=== PATIENT | female | born 1970 | race American Indian/Alaskan Native ===

== ENCOUNTER 2017-10-17 18:10 | Emergency (ER) | payer SELFPAY ==
[2017-10-17 19:18] LABS: Hematocrit 41.1 % (30.3-42.9); Hemoglobin 13.5 gm/dl (10.1-14.3); Mean Corpuscular HGB Conc 33 % (30-34); Mean Corpuscular Hemoglobin 30 pg (28-32); Mean Corpuscular Volume 90 fl (79-97); Platelet Count 235 K/mm3 (140-440); Red Blood Count 4.56 M/mm3 (3.65-5.03); Red Cell Distribution Width 12.7 % (13.2-15.2)
[2017-10-17 19:43] LABS: Alanine Aminotransferase 7 units/L (7-56); Albumin 3.9 g/dL (3.9-5); BUN/Creatinine Ratio 17; Blood Urea Nitrogen 10 mg/dL (7-17); Calcium 9.1 mg/dL (8.4-10.2); Hemolysis Index 6; Lipase 32 units/L (13-60)
[2017-10-17 20:09] LABS: Basophils % (Manual) 0 % (0.0-1.8); Platelet Estimate Consistent w Auto; Total Cells Counted 100
[2017-10-17] MEDS ORDERED: PERCOCET 5/325 PO ONE (23:04)
--- NOTE | 2017-10-17 23:04 | Emergency Department Report ---
ED Abdominal Pain HPI - General Chief Complaint: Pain General Stated Complaint: CHEST/BACK PAIN/BLURRED VISION Time Seen by Provider: 10/17/17 22:46 Source: patient Mode of arrival: Ambulatory Limitations: No Limitations - History of Present Illness Initial Comments: Ms. Barrow is a healthy 47-year-old female who's had 1 week of mild left flank pain. Today she developed pelvic pain radiating to the left lower quadrant. She feels as if "she's having a baby. She had brief nondescript chest pain. She's had headache. She's seen black spots in her vision feel. Last normal menstrual period in August. She now has vaginal spotting. MD Complaint: abdominal pain -: days(s) (1) Location: LLQ Radiation: L flank Severity scale (0 -10): 2 Quality: cramping Consistency: constant Improves With: nothing Worsens With: nothing - Related Data Previous Rx's Medication Instructions Recorded Last Taken Type Doxycycline Hyclate [Doxycycline 100 mg PO Q12HR 10 Days #20 tab 10/18/17 Unknown Rx Hyclate TAB] oxyCODONE /ACETAMINOPHEN [Percocet 1 tab PO Q6HR PRN #10 tablet 10/18/17 Unknown Rx 5/325] Allergies Allergy/AdvReac Type Severity Reaction Status Date / Time No Known Allergies Allergy Unverified 10/17/17 18:38 ED Review of Systems ROS: Stated complaint: CHEST/BACK PAIN/BLURRED VISION Other details as noted in HPI Comment: All other systems reviewed and negative Constitutional: denies: fever, malaise ED Past Medical Hx - Past Medical History Previous Medical History?: No Additional medical history: VAGINAL DELIVERY X 3 - Surgical History Past Surgical History?: Yes Additional Surgical History: TUBALIGATION - Social History Smoking Status: Never Smoker Substance Use Type: None - Medications Home Medications: Home Medications Medication Instructions Recorded Confirmed Last Taken Type Doxycycline Hyclate [Doxycycline 100 mg PO Q12HR 10 Days #20 tab 10/18/17 Unknown Rx Hyclate TAB] oxyCODONE /ACETAMINOPHEN [Percocet 1 tab PO Q6HR PRN #10 tablet 10/18/17 Unknown Rx 5/325] ED Physical Exam - General Limitations: No Limitations General appearance: alert, in no apparent distress - Head Head exam: Present: atraumatic, normocephalic - Eye Eye exam: Present: normal appearance - ENT ENT exam: Present: mucous membranes moist - Neck Neck exam: Present: normal inspection - Respiratory Respiratory exam: Present: normal lung sounds bilaterally. Absent: respiratory distress, wheezes, rales, rhonchi - Cardiovascular Cardiovascular Exam: Present: regular rate, normal rhythm, normal heart sounds. Absent: systolic murmur, diastolic murmur, rubs, gallop - GI/Abdominal GI/Abdominal exam: Present: soft, normal bowel sounds. Absent: distended, tenderness, guarding, rebound - Extremities Exam Extremities exam: Present: normal inspection - Back Exam Back exam: Present: normal inspection - Neurological Exam Neurological exam: Present: alert, oriented X3 - Psychiatric Psychiatric exam: Present: normal affect, normal mood - Skin Skin exam: Present: warm, dry, intact, normal color. Absent: rash ED Course Vital Signs 10/17/17 10/17/17 18:38 22:52 Temperature 98.8 F 98 F Pulse Rate 66 65 Respiratory 24 15 Rate Blood Pressure 146/93 [Left] O2 Sat by Pulse 99 100 Oximetry ED Medical Decision Making - Lab Data Result diagrams: 10/17/17 18:58 10/17/17 18:58 Vital Signs - 24 hr 10/17/17 10/17/17 18:38 22:52 Temperature 98.8 F 98 F Pulse Rate 66 65 Respiratory 24 15 Rate Blood Pressure 146/93 [Left] O2 Sat by Pulse 99 100 Oximetry Laboratory Results - last 24 hr 10/17/17 10/17/17 10/17/17 18:58 18:58 Unknown WBC 5.9 RBC 4.56 Hgb 13.5 Hct 41.1 MCV 90 MCH 30 MCHC 33 RDW 12.7 L Plt Count 235 Add Manual Diff Complete Total Counted 100 Seg Neutrophils % [place] Seg Neuts % (Manual) 31.0 L Band Neutrophils % 0 Lymphocytes % (Manual) 55.0 H Reactive Lymphs % (Man) 0 Monocytes % (Manual) 13.0 H Eosinophils % (Manual) 1.0 Basophils % (Manual) 0 Metamyelocytes % 0 Myelocytes % 0 Promyelocytes % 0 Blast Cells % 0 Nucleated RBC % Not Reportable Seg Neutrophils # Man 1.8 Band Neutrophils # 0.0 Lymphocytes # (Manual) 3.2 Abs React Lymphs (Man) 0.0 Monocytes # (Manual) 0.8 Eosinophils # (Manual) 0.1 Basophils # (Manual) 0.0 Metamyelocytes # 0.0 Myelocytes # 0.0 Promyelocytes # 0.0 Blast Cells # 0.0 WBC Morphology Not Reportable Hypersegmented Neuts Not Reportable Hyposegmented Neuts Not Reportable Hypogranular Neuts Not Reportable Smudge Cells Not Reportable Toxic Granulation Not Reportable Toxic Vacuolation Not Reportable Dohle Bodies Not Reportable Pelger-Huet Anomaly Not Reportable Shahnaz Rods Not Reportable Platelet Estimate Consistent w auto Clumped Platelets Not Reportable Plt Clumps, EDTA Not Reportable Large Platelets Not Reportable Giant Platelets Not Reportable Platelet Satelliting Not Reportable Plt Morphology Comment Not Reportable RBC Morphology Not Reportable Dimorphic RBCs Not Reportable Polychromasia Not Reportable Hypochromasia Not Reportable Poikilocytosis Not Reportable Anisocytosis Not Reportable Microcytosis Not Reportable Macrocytosis Not Reportable Spherocytes Not Reportable Pappenheimer Bodies Not Reportable Sickle Cells Not Reportable Target Cells Not Reportable Tear Drop Cells Not Reportable Ovalocytes Not Reportable Helmet Cells Not Reportable Thompson-Cogswell Bodies Not Reportable [place] Rings Not Reportable [place] Cells Not Reportable Bite Cells Not Reportable Crenated Cell Not Reportable Elliptocytes Not Reportable Acanthocytes (Spur) Not Reportable Rouleaux Not Reportable Hemoglobin C Crystals Not Reportable Schistocytes Not Reportable Malaria parasites Not Reportable Bhavesh Bodies Not Reportable Hem Pathologist Commnt No Sodium 136 L Potassium 4.2 Chloride 100.0 Carbon Dioxide 26 Anion Gap 14 BUN 10 Creatinine 0.6 L Estimated GFR > 60 BUN/Creatinine Ratio 17 Glucose 88 Calcium 9.1 Total Bilirubin 0.30 AST 13 ALT 7 Alkaline Phosphatase 67 Total Protein 7.1 Albumin 3.9 Albumin/Globulin Ratio 1.2 Lipase 32 Urine Color Yellow Urine Turbidity Clear Urine pH 5.0 Ur Specific [place] 1.016 Urine Protein <15 mg/dl Urine Glucose (UA) Neg Urine Ketones Neg Urine Blood Neg Urine Nitrite Neg Ur Reducing Substances Not Reportable Urine Bilirubin Neg Urine Ictotest Not Reportable Urine Urobilinogen < 2.0 Ur Leukocyte Esterase Neg Urine WBC (Auto) < 1.0 Urine RBC (Auto) 1.0 U Epithel Cells (Auto) < 1.0 Urine Mucus Few Urine HCG, Qual Negative - EKG Data 10/17/17 23:05 NSR nl rate nl axis nl intervals no ST-T signs of ischemia no ST elevation rate 70 bpm - Medical Decision Making Ms. Barrow is a healthy female who presents with scotoma chest pain pelvic pain. She was highly relieved when she found out that her test negative. She wanted to be treated for pelvic infection. I treated her with ceftriaxone IM in the ED. Prescribed doxycycline. She was prescribed doxycycline and Percocet. No evidence of peritonitis. Pain is atypical for ACS. PERC negative for PE. Critical care attestation.: If time is entered above; I have spent that time in minutes in the direct care of this critically ill patient, excluding procedure time. ED Disposition Clinical Impression: Pelvic infection, Abdominal pain Disposition: TO HOME OR SELFCARE Is pt being admited?: No Does the pt Need Aspirin: No Condition: Stable Instructions: Abdominal Pain (ED) Prescriptions: Doxycycline Hyclate [Doxycycline Hyclate TAB] 100 mg PO Q12HR 10 Days #20 tab oxyCODONE /ACETAMINOPHEN [Percocet 5/325] 1 tab PO Q6HR PRN #10 tablet PRN Reason: Pain Referrals: PRIMARY CARE, [Primary Care Provider] - 3-5 Days Time of Disposition: 01:20
[2017-10-17 23:15] LABS: HCG Qualitative,Urine Negative (Negative)
[2017-10-17 23:17] LABS: Bilirubin,Urine NEG (Negative); Blood,Urine NEG (Negative); Color,Urine Yellow (Yellow); Mucus,Urine FEW /HPF; Protein,Urine <15 mg/dL mg/dL (Negative); Urobilinogen,Urine < 2.0 mg/dL (<2.0); WBC,Urine < 1.0 /HPF (0.0-6.0)
[2017-10-18] MEDS ORDERED: ROCEPHIN IM ONE (01:17)
[2017-10-18] MEDS ORDERED: XYLOCAINE 1% MPF 5 mL INFILTRATI ONE (01:17)
[2017-10-18 01:21] VITALS: BP 118/69
== END 2017-10-18 01:35 | disposition home or self-care (01) ==
LOC: ED 18:10
DX: N73.9 Female pelvic inflammatory disease, unspecified (principal)
CPT/HCPCS: 36415; 80053; 81001; 81025; 83690; 85007; 85025; 93005; 93010; 96372; 99283; J0696